=== PATIENT | male | born 1975 | race Caucasian/White ===

== ENCOUNTER 2017-05-09 20:44 | Emergency (ER) | payer OTHER ==
[~2017-05-09] VITALS: Ht 182.9 cm; Wt 122.7 kg
[~2017-05-09 20:44] MED LIST: ASPIRIN E.C. 8181 MG PO; IBU800 M1 PO; IPRATROPIUM BROM3 M1 IH; LEVAQUIN 5500 MG/TA1 PO; NEB; NO HOME MEDICATIONS; NORCO 325 MG-51 TAB PO; PREDNISONE10 MG PO; PRINIVIL10 MG PO; PROAIR HFA0.09 MG/AC IH; RT ADVAIR 128 DISKUS IH; SINGULAIR 110 MG/TAB PO
[2017-05-09 20:57] VITALS: BP 144/85; TEMP 98.3
[2017-05-09] MEDS ORDERED: COZAAR 50MG50 MG/TAB PO (21:00)
[2017-05-09] MEDS ORDERED: ASPIRIN 81M81 MG/TA2 PO (21:00)
[2017-05-09] MEDS ORDERED: SINGULAIR 110 MG/TAB PO (21:00)
[2017-05-09] MEDS ORDERED: PROAIR HFA0.09 MG/AC IH (21:01)
[2017-05-09] MEDS ORDERED: RT ADVAIR 128 DISKUS IH (21:01)
[2017-05-09] MEDS ORDERED: ATROVENT INHALE14 GM IH (21:01)
[2017-05-09] MEDS ORDERED: SPIRIVA RESPIMAT4 GM IH (21:02)
[2017-05-09] MEDS ORDERED: ZYRTEC 10MG10 MG PO (21:03)
[2017-05-09 22:17] VITALS: PULSE 87
== END 2017-05-09 22:24 | disposition home or self-care (01) ==
LOC: COL.ER 20:44
DX: Z71.1 Person with feared health complaint in whom no diagnosis is made (principal); I10 Essential (primary) hypertension; Z87.891 Personal history of nicotine dependence; Z79.82 Long term (current) use of aspirin; Z79.51 Long term (current) use of inhaled steroids

== ENCOUNTER 2017-08-26 12:42 | Outpatient (CLI) | payer OTHER ==
[~2017-08-26] VITALS: Ht 182.9 cm; Wt 126.6 kg
[~2017-08-26 12:42] MED LIST changes: +ASPIRIN 81M81 MG/TA2 PO; +ATROVENT INHALE14 GM IH; +COZAAR 50MG50 MG/TAB PO; +SPIRIVA RESPIMAT4 GM IH; +ZYRTEC 10MG10 MG PO
[2017-08-26 14:02] VITALS: BP 119/79; PULSE 62; TEMP 98.3
== END 2017-08-26 16:33 | disposition home or self-care (01) ==
LOC: EUO 12:42
DX: J45.40 Moderate persistent asthma, uncomplicated (principal); Z79.899 Other long term (current) drug therapy
CPT/HCPCS: J2357

== ENCOUNTER → 2017-09-28 | Outpatient (CLI) | payer OTHER | LOC: EUO 09-22 15:00 | DX: J45.40 Moderate persistent asthma, uncomplicated (principal) | CPT/HCPCS: J2357 ==

== ENCOUNTER 2020-01-30 09:32 | Emergency (ER) | payer OTHER ==
[~2020-01-30] VITALS: Ht 182.9 cm; Wt 125.0 kg
[2020-01-30 09:39] VITALS: TEMP 98.9
[2020-01-30] MEDS ORDERED: PREDNISONE20 MG PO (10:57)
[2020-01-30] MEDS ORDERED: TESSALON PERLE200 MG PO (10:57)
[2020-01-30 11:13] VITALS: BP 140/107; PULSE 70
== END 2020-01-30 11:05 | disposition home or self-care (01) ==
LOC: COL.ER 09:32
DX: U07.1 COVID-19 (principal); I10 Essential (primary) hypertension; J45.909 Unspecified asthma, uncomplicated; Z79.82 Long term (current) use of aspirin
CPT/HCPCS: J7512

== ENCOUNTER 2020-07-09 12:13 | Emergency (ER) | payer OTHER ==
[~2020-07-09] VITALS: Ht 182.9 cm; Wt 136.4 kg
[~2020-07-09 12:13] MED LIST changes: +PREDNISONE20 MG PO; +TESSALON PERLE200 MG PO
[2020-07-09 12:35] VITALS: BP 201/122; TEMP 98
[2020-07-09 13:12] VITALS: PULSE 72
== END 2020-07-09 13:11 | disposition home or self-care (01) ==
LOC: COL.ER 12:13
DX: M25.561 Pain in right knee (principal); Z79.82 Long term (current) use of aspirin; Z79.51 Long term (current) use of inhaled steroids
CPT/HCPCS: 31869; L1830; L1846

== ENCOUNTER 2022-07-09 00:32 | Inpatient (IN) | payer BC, OTHER ==
[2022-07-09] VITALS (12 sets, daily range): BP systolic 137–180; BP diastolic 82–96; PULSE 70–102; TEMP 97.4–98.3
[~2022-07-09] VITALS: Ht 182.9 cm; Wt 149.6 kg
[2022-07-09 01:02] LABS: BASO # 0.1 K/mm3 (0.0-0.2); BASO % 0.8 % (0.0-2.0); EOS # 0.5 K/mm3 (0.0-0.7); EOS % 5.2 % (0.0-4.0); GRAN # 6.2 K/mm3 (1.4-6.5); GRAN % 62.2 % (42.2-75.2); HEMATOCRIT 43.6 % (42.0-52.0); HEMOGLOBIN 15.3 g/dl (13.5-18.0); LYMPH # 2.1 K/mm3 (1.2-3.4); LYMPH % 21.3 % (20.0-51.0); MEAN CELL VOLUME 102 fl (80.0-100.0); MEAN CORPUSCULAR HEMOGLOBIN 36 pg (27-31); MEAN CORPUSCULAR HGB CONC 35 g/dl (33.0-37.0); MEAN PLATELET VOLUME 9.4 fl (7.4-10.4); MONO % 10.2 % (1.7-9.3); PLATELET COUNT 177 K/mm3 (130-400); RED BLOOD COUNT 4.29 M/mm3 (4.20-5.60); REDCELL DISTRIBUTION WIDTH-CV 11.8 % (11.5-14.5)
[2022-07-09 01:28] LABS: ALBUMIN 3.6 gm/dL (3.5-5.0); CALCIUM 8.8 mg/dL (8.4-10.2); CREATININE, serum 0.9 mg/dL (0.72-1.25); POTASSIUM 4.3 mmol/L (3.5-4.5); TOTAL PROTEIN 6.8 gm/dL (6.2-8.1)
[2022-07-09 01:48] LABS: COLLECTION METHOD CLEAN CATCH
[2022-07-09 01:57] LABS: MUCOUS Present (NOT PRESENT); SQUAMOUS EPITHELIAL 0-2 /hpf (0-10); URINE BACTERIA None Seen /hpf (NONE SEEN); URINE RBC 0-2 /hpf (0-2)
[2022-07-09 02:00] LABS: URINE APPEARANCE Clear (CLEAR/HAZY); URINE BLOOD Negative (NEGATIVE); URINE COLOR Yellow (YELLOW); URINE GLUCOSE Negative (NEGATIVE); URINE KETONE Negative (NEGATIVE); URINE NITRATE Negative (NEGATIVE); URINE PROTEIN(semi-quant) Negative (NEGATIVE); URINE UROBILINOGEN 0.2 E.U/dL (0.2-1.0)
[2022-07-09] MEDS ORDERED: ZANTAC-360 (FAM20 MG PO (05:07)
[2022-07-09] MEDS ORDERED: EFFEXOR XR37.5 MG/CA PO (06:08)
--- NOTE | 2022-07-09 07:57 | NUR ---
Received shift report from the night nurse, RAJ Russo.
--- NOTE | 2022-07-09 10:07 | NUR ---
Initial visit; Patient and his both thanked Pe Teacher for stopping though said Pat wasn't receptive to prayer or Spiritual Care at this time.
--- NOTE | 2022-07-09 10:09 | NUR ---
SW met with pt for intake. Pt reports living in [place], [place] with spouse Josefa who is identified as NOK and was present. Confirmed phone number as [phone]. Pt reports having 3 sets of stairs at home with about 12 steps each and having challenges getting up and down them. Pt denies using any DME at home or oxygen. Pt reports PCP as Dr. Dowling and confirmed insurance as [employer] and . Pt reports using [employer] and does not have any issues. Pt would like resources to assist discontinuing drinking. Pt would like to fill out DPOA paperwork and is aware of need 2 individuals present to sign. SW provided resource list and DPOA paperwork. Discharge plan Home with
--- NOTE | 2022-07-09 10:54 | NUR ---
Patient up in a semi don position in bed. IVF infusing without difficulty. Assessment completed and patient reports of severe pain at RUQ. Patient rated pain level 8/10 and dilaudid administered. Patient was informed to notify nurse and pain does not subside and can have pain medicaiton 30 minutes per parameter. Patient verbalized understanding. Call ayala within reach and family member at the bedside.
--- NOTE | 2022-07-09 12:14 | NUR ---
HEALTHCARE RECEPTIONIST pump of dilaudid initiated at 11:48 , instruction given to patient on the use of the medication. Patient verbalized understanding.
--- NOTE | 2022-07-09 15:21 | NUR ---
Patient c/o of severe pain at RUQ. Dr. Martinez at the bedside and gave a verbal order to change CUSTOMER CONTACT SPECIALIST Basal rate to 0.3 and increase it to 0.4 if patient is still in severe pain and not getting relief. CUSTOMER CONTACT SPECIALIST basal rate changed to 0.3 per orders. See e-mar for changes.
--- NOTE | 2022-07-09 17:24 | NUR ---
Patient maxed up his cribbing setter and replaced a new one at 1636. Patient states his pain level is 7/10. Basal rate increased to 0.4 per verbal order from Dr. Martinez.
[2022-07-10] VITALS (13 sets, daily range): BP systolic 123–157; BP diastolic 62–90; PULSE 94–102; TEMP 97.6–99.3
[2022-07-10 06:47] LABS: HEMATOCRIT 44.4 % (42.0-52.0); HEMOGLOBIN 14.5 g/dl (13.5-18.0); MEAN CORPUSCULAR HEMOGLOBIN 35 pg (27-31); MEAN CORPUSCULAR HGB CONC 33 g/dl (33.0-37.0); MEAN PLATELET VOLUME 9.7 fl (7.4-10.4); PLATELET COUNT 171 K/mm3 (130-400); RED BLOOD COUNT 4.12 M/mm3 (4.20-5.60); REDCELL DISTRIBUTION WIDTH-CV 12.3 % (11.5-14.5)
[2022-07-10 06:51] LABS: MEAN CELL VOLUME 108 fl (80.0-100.0)
[2022-07-10 07:28] LABS: ALBUMIN 3.5 gm/dL (3.5-5.0); BILIRUBIN,TOTAL 1.9 mg/dL (0.2-1.2); CALCIUM 8.5 mg/dL (8.4-10.2); CREATININE, serum 1.18 mg/dL (0.72-1.25); MAGNESIUM 1.6 mg/dL (1.6-2.6); POTASSIUM 4.5 mmol/L (3.5-4.5); TOTAL PROTEIN 6.9 gm/dL (6.2-8.1)
[2022-07-10 07:38] LABS: BAND 15 % (0-10); EOSINOPHIL 1 % (0-4); LYMPHOCYTE 11 % (20.0-51.0); NEUTROPHILS 61 % (42.0-75.2)
[2022-07-10 07:39] LABS: HYPOCHROMIA 1+; PLATELET ESTIMATE NORMAL (NORMAL)
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
--- NOTE | 2022-07-10 18:18 | NUR ---
SKIP MINER PUMPED CLEARED AT THIS TIME. WHEN CLEARNING PUMP, NOTED PUMP HAD NOT BEEN CLEARED. DOCUMENTED TOTAL INTAKE.
--- NOTE | 2022-07-10 21:45 | NUR ---
Spoke with LINDA Obregon about patients CPAP. Patient reports he has not been able to sleep well due to not wearing his CPAP and being diagnosed with severe LA. States "staff" told him he could not wear it while on the [employer] RAILROAD. LINDA Obregon approved wearing of CPAP. Spoke with RT Andrea to notify of patient being placed on home CPAP. States end tidal monitor can be shut off while on CPAP. Instructed patient to notify this nurse if decides to remove CPAP. Verbalizes understanding. Call light in reach. Will monitor.
[2022-07-11] VITALS (11 sets, daily range): BP systolic 116–167; BP diastolic 59–91; PULSE 77–102; TEMP 98–99.2
--- NOTE | 2022-07-11 04:49 | NUR ---
Patient had an uneventful night and rested better with CPAP on. Dilaudid RECYCLABLE MATERIALS DISTRIBUTOR still in use with good pain control. NS@125ml/hr infusing to left AC INT without difficulty. VS remained stable. No nausea this shift and tolerated ice chips. Denies current questions/concerns. Call light in reach. Will monitor.
[2022-07-11 06:58] LABS: HEMATOCRIT 40.2 % (42.0-52.0); HEMOGLOBIN 13.4 g/dl (13.5-18.0); MEAN CELL VOLUME 108 fl (80.0-100.0); MEAN CORPUSCULAR HEMOGLOBIN 36 pg (27-31); MEAN CORPUSCULAR HGB CONC 33 g/dl (33.0-37.0); MEAN PLATELET VOLUME 9.7 fl (7.4-10.4); PLATELET COUNT 166 K/mm3 (130-400); RED BLOOD COUNT 3.72 M/mm3 (4.20-5.60); REDCELL DISTRIBUTION WIDTH-CV 12.4 % (11.5-14.5)
[2022-07-11 07:07] LABS: ALBUMIN 3.1 gm/dL (3.5-5.0); BILIRUBIN,TOTAL 1.6 mg/dL (0.2-1.2); CALCIUM 8.3 mg/dL (8.4-10.2); CREATININE, serum 3.39 mg/dL (0.72-1.25); MAGNESIUM 2.4 mg/dL (1.6-2.6); POTASSIUM 4.5 mmol/L (3.5-4.5); TOTAL PROTEIN 6.8 gm/dL (6.2-8.1)
[2022-07-11 08:00] LABS: BAND 4 % (0-10); BASOPHIL 1 % (0-2); EOSINOPHIL 2 % (0-4); LYMPHOCYTE 13 % (20.0-51.0); NEUTROPHILS 66 % (42.0-75.2)
[2022-07-11 08:01] LABS: PLATELET ESTIMATE NORMAL (NORMAL)
--- NOTE | 2022-07-11 08:30 | NUR ---
PT RESTING IN BED THIS MORNING. SHIFT ASSESSMENT COMPLETED. MORNING MEDICATIONS GIVEN BY STUDENT RN, JARED. THIS RN RESET EDGE BRUSHER PUMP WITH NEW DILAUDID SYRINGE. PT REPORTS PAIN TO RUQ WITH MOVEMENT. DENIES ANY OTHER NEEDS AT THIS TIME. IVF INFUSING, CALL LIGHT WITHIN REACH. WILL CONTINUE TO MONITOR.
--- NOTE | 2022-07-11 10:31 | NUR ---
THIS RN DISCONNECTED PT FROM DILAUDID FLOOR MOLDER AT THIS TIME. DISCUSSED WITH PT THE NEED FOR ACCURATE INTAKE AND OUTPUT AND ORDER FOR HARP. PT STATES HE WOULD LIKE TO AVOID HARP UNLESS COMPLETELY NECESSARY, DISCUSSED WITH DR. VANESSA AND HE IS OK WITH USING A HAT/URINAL AT THIS TIME TO MONITOR I&O. WILL CONTINUE TO FOLLOW.
--- NOTE | 2022-07-11 14:20 | NUR ---
Telehealth visit conducted with Dr. Mateusz Tinsley, Filter Screen Cleaner. Patient consented to visit. Telecommunication initiated without any difficulties during exam. All questions were answered by Dr. Franklin.
[2022-07-11 15:54] LABS: CREATININE, serum 3.43 mg/dL (0.72-1.25)
[2022-07-11 16:02] LABS: FRACTIONAL EXCRETION OF NA+ 0.24 %
--- NOTE | 2022-07-11 21:00 | NUR ---
PT SAO2 89-90% ON RA/AWAKE. DISCUSSED WITH PT AND PT'S , HE CAN WEAR NC OR OUR CPAP W/O2 TONIGHT. PT OPTED FOR OUR CPAP. DISCUSSED WITH PT, PT'S AND GABY MARIE THAT PT MAY REQUIRE HOME O2 FOR CPAP.
[2022-07-12] VITALS (10 sets, daily range): BP systolic 151–167; BP diastolic 71–93; PULSE 60–674; TEMP 97.7–98.6
--- NOTE | 2022-07-12 05:01 | NUR ---
Shift assessment performed- see documentation. 2+ pitting edema present on bilateral lower extremeties. Lung sounds continue to be clear. He is using his CPAP for sleeping. At 2200 he reported feeling diaphoretic but the sweating resolved. He initally reported no pain. At about 0330 he complained of a headache. PRN tylenol was administered as ordered. He reports having a small marble sized BM and states that he is feeling constipated. He wanted to wait until his colace that is ordered next for 0900. He is tolerating the clear liquid diet. He denies nausea. His output is minimal and his urine is an maximiliano/peach color. Strict I&Os being observed.
[2022-07-12 06:57] LABS: BASO % 0.3 % (0.0-2.0); EOS # 0.3 K/mm3 (0.0-0.7); EOS % 2.4 % (0.0-4.0); GRAN # 8.4 K/mm3 (1.4-6.5); GRAN % 74.3 % (42.2-75.2); HEMOGLOBIN 12.2 g/dl (13.5-18.0); LYMPH # 1.2 K/mm3 (1.2-3.4); LYMPH % 10.3 % (20.0-51.0); MEAN CELL VOLUME 108 fl (80.0-100.0); MEAN CORPUSCULAR HEMOGLOBIN 36 pg (27-31); MEAN CORPUSCULAR HGB CONC 33 g/dl (33.0-37.0); MEAN PLATELET VOLUME 10.1 fl (7.4-10.4); MONO # 1.3 K/mm3 (0.1-0.6); MONO % 11.7 % (1.7-9.3); PLATELET COUNT 129 K/mm3 (130-400)
[2022-07-12 07:04] LABS: ALBUMIN 2.5 gm/dL (3.5-5.0); CALCIUM 8.2 mg/dL (8.4-10.2); CREATININE, serum 1.59 mg/dL (0.72-1.25); MAGNESIUM 2.2 mg/dL (1.6-2.6); POTASSIUM 4.3 mmol/L (3.5-4.5)
[2022-07-12 07:13] LABS: HEMATOCRIT 36.6 % (42.0-52.0)
--- NOTE | 2022-07-12 09:04 | NUR ---
PT BACK FROM BATHROOM. STATES HE HAD A SMALL BM. PT IS AXOX4. PT DENIES NAUSEA, BUT DOES STATE HIS STOMACH FEELS UPSET. PT'S IV LEAKING. IV REPOSITIONED AND REDRESSED. PT HAS CALL LIGHT AND INSTRUCTED TO CALL WITH ALL NEEDS.
--- NOTE | 2022-07-12 11:39 | NUR ---
PTS CAME TO NURSES STATION SAYING PT SEEMS GROGGY. THIS RN WENT TO ROOM TO ASSESS PT. PT WAS RESTING IN BED. PT AWOKE TO VOICE, PT ANSWERS ORIENTATION QUESITONS APPROPRIATLY. VSS. PT COMPLAINS OF A HEADACHE AND ALL OVER ABD ACHE. NOTIFIED. TYLENOL GIVEN. PT DOES HAVE A HX OF ETOH DAILY. DISCUSSED WITH PT AND HIS THIS COULD BE SOME SIGNS OF DETOX. AWARE.
--- NOTE | 2022-07-12 18:42 | NUR ---
Patient moved to room 349. He showered. Tolerating clears. denies needs. Night shiftnurse to resume cares
--- NOTE | 2022-07-13 00:30 | NUR ---
Shift assessment performed- see documentation. Pt states that he has been urinating more often and is having BMs again. His urine is an orange color but dial marker than it was last night. He denies pain at this time. He continues to have high BP readings. PRN apresoline given as ordered when indicated- see eMAR. He is tolerating a clear liquid diet well. He wears his CPAP at night when sleeping. Bed in lowest position and call light within reach
[2022-07-13 01:11] VITALS: BP_SYST 161
[2022-07-13 03:35] VITALS: BP 158/86; PULSE 75; TEMP 98.8
[2022-07-13 05:15] VITALS: BP_SYST 158
[2022-07-13 06:12] LABS: BASO % 0.3 % (0.0-2.0); EOS # 0.3 K/mm3 (0.0-0.7); EOS % 3.7 % (0.0-4.0); GRAN % 64.5 % (42.2-75.2); HEMATOCRIT 37.9 % (42.0-52.0); LYMPH # 1.5 K/mm3 (1.2-3.4); LYMPH % 16.1 % (20.0-51.0); MEAN CELL VOLUME 104 fl (80.0-100.0); MEAN CORPUSCULAR HEMOGLOBIN 36 pg (27-31); MEAN CORPUSCULAR HGB CONC 34 g/dl (33.0-37.0); MEAN PLATELET VOLUME 9.7 fl (7.4-10.4); MONO # 1.3 K/mm3 (0.1-0.6); MONO % 14.4 % (1.7-9.3); PLATELET COUNT 147 K/mm3 (130-400); RED BLOOD COUNT 3.66 M/mm3 (4.20-5.60); REDCELL DISTRIBUTION WIDTH-CV 11.9 % (11.5-14.5)
[2022-07-13 06:22] LABS: CALCIUM 8.5 mg/dL (8.4-10.2); CREATININE, serum 0.86 mg/dL (0.72-1.25); POTASSIUM 3.8 mmol/L (3.5-4.5)
[2022-07-13 07:54] VITALS: BP 131/56; PULSE 77; TEMP 98.6
--- NOTE | 2022-07-13 09:17 | NUR ---
IV SITE WAS SLIGHTY REDENNED AND A LITTLE PUFFY; AFTER ADMINISTERING MERREM WE DISCONITINUED IV PER TALHA
--- NOTE | 2022-07-13 09:25 | NUR ---
Agree with students assessment of the patient. Patient A&Ox4. VSS. Independent in the room. Tolerating clear liquid diet. Call light within reach
--- NOTE | 2022-07-13 11:31 | NUR ---
Sustain Engineer rounds: Patient had visitor. Patient was in bed, smiling. Sustain Engineer commented that he appeared to feel well today. Patient stated he was feeling better. Politely declined Sustain Engineer visit.
[2022-07-13 12:17] VITALS: BP 153/82; PULSE 83
--- NOTE | 2022-07-13 12:27 | NUR ---
Discharge paperwork reviewed with the patient and at the bedside. Patient ambulated to awaiting vehicle independently. No further needs expressed
== END 2022-07-13 12:29 | disposition home or self-care (01) | DRG 438 ==
LOC: COL.ER 00:32 → MEDICAL 04:42 → SURG 07-12 17:00
PROVIDERS: Emergency Medicine; Physician Assistant; Student in an Organized Health Care Education/Training Program; ADMIT Internal Medicine
DX: K85.20 Alcohol induced acute pancreatitis without necrosis or infection (principal); K55.059 Acute (reversible) ischemia of intestine, part and extent unspecified; N17.9 Acute kidney failure, unspecified; Z68.41 Body mass index [BMI] 40.0-44.9, adult; I10 Essential (primary) hypertension; F43.10 Post-traumatic stress disorder, unspecified; K76.0 Fatty (change of) liver, not elsewhere classified; E83.42 Hypomagnesemia; J45.909 Unspecified asthma, uncomplicated; F10.90 Alcohol use, unspecified, uncomplicated; Z79.82 Long term (current) use of aspirin; E66.9 Obesity, unspecified
CPT/HCPCS: J0696; J1170; J1644; J1650; J2185; J2270; J2405; J3475; J7030; Q9967